=== PATIENT | male | born 1950 | race Hispanic/Latino ===

== ENCOUNTER → 2020-04-09 | Outpatient (CLI) | payer OTHER ==
[~2020-04-09] MED LIST: CHOL500050 PO; DILT120T PO; GLIP10TA9 PO; GLUC-145 PO; HYDR12.54 PO; IBUP-2077 PO; INSLAN SQ; LOSA1TAB37 PO; METF-446 PO; NIAC500C3 PO; OMEP40CA13 PO; ROSU20TA23 PO; SAW450CA7 PO; TRAM50TA4 PO
== END | disposition home or self-care (01) ==
LOC: RAH 10:55
PROVIDERS: ATTEND Orthopaedic Surgery
DX: M23.92 Unspecified internal derangement of left knee (principal)
CPT/HCPCS: 73721

== ENCOUNTER → 2020-05-22 | Outpatient (CLI) | payer OTHER | END | disposition home or self-care (01) | LOC: SHCH 14:23 | PROVIDERS: ATTEND Internal Medicine Cardiovascular Disease | DX: R60.9 Edema, unspecified (principal) | CPT/HCPCS: 93925; 93970 ==

== ENCOUNTER 2020-07-12 07:26 | Day surgery (SDC) | payer OTHER ==
[2020-07-10 09:28] LABS: BASOPHILS % (AUTO) 0.7 % (0.0-5.0); EOSINOPHILS % (AUTO) 3.2 % (0.0-8.0); HEMATOCRIT 42.7 % (42-54); LYMPHOCYTES % (AUTO) 45.6 % (21.0-51.0); MEAN CORPUSCULAR HGB CONC 35.4 g/dL (32.0-36.0); MEAN CORPUSCULAR VOLUME 93.2 fL (79-99); MONOCYTES % (AUTO) 7.8 % (3.0-13.0); NEUTROPHILS % (AUTO) 42.4 % (40.0-77.0); PLATELET COUNT (AUTO) 226 K/uL (130-400); RED BLOOD CELL COUNT(AUTO) 4.58 MIL/uL (4.50-6.20); RED CELL DISTRIBUTION WIDTH 12.5 % (11.0-15.5); WHITE BLOOD COUNT (AUTO) 10.4 K/uL (4.8-10.8)
[2020-07-10 09:39] LABS: POTASSIUM 3.9 mmol/L (3.5-5.1)
[2020-07-10 09:42] LABS: APPEARANCE,URINE Clear (CLEAR); BILIRUBIN,URINE Negative (NEGATIVE); COLOR,URINE Yellow (YELLOW); GLUCOSE, URINE (UA) 500 mg/dL (NEGATIVE); KETONES,URINE Negative (NEGATIVE); LEUKOCYTE ESTERASE ,URINE Negative (NEGATIVE); NITRATE,URINE Negative (NEGATIVE); OCCULT BLOOD,URINE Negative (NEGATIVE); PROTEIN,URINE Negative (NEGATIVE); UROBILINOGEN,URINE 0.2 mg/dL (0.2-1.0)
[2020-07-10 09:53] LABS: INR 0.88 (0.85-1.15); PARTIAL THROMBOPLASTIN TIME 23.8 SEC (26.3-35.5); PROTHROMBIN TIME 9.6 SEC (9.6-11.6)
[2020-07-10 10:04] LABS: BACTERIA,URINE Rare /HPF (None Seen); RBC,URINE 0-1 /HPF (0-1); SQUAMOUS EPITHELIAL CELL,UR Rare /HPF (0-2); WBC,URINE 0-1 /HPF (0-1)
[2020-07-11 16:22] VITALS: BP 124/62
[2020-07-12] VITALS (9 sets, daily range): BP systolic 130–150; BP diastolic 60–69
[~2020-07-12] VITALS: Ht 172.7 cm; Wt 99.1 kg
[~2020-07-12 07:26] MED LIST changes: +AMIL5TAB8 PO; -CHOL500050 PO; -DILT120T PO; -GLUC-145 PO; -HYDR12.54 PO; -IBUP-2077 PO; +ICOS1CAP PO; -INSLAN SQ; +INSU100I15 SQ; +INSU3INS3 SQ; -LOSA1TAB37 PO; +LOSA50TA64 PO; -METF-446 PO; -NIAC500C3 PO; +NIAC500T22 PO; -OMEP40CA13 PO; -ROSU20TA23 PO; -SAW450CA7 PO; +SITA100T12 PO; +SODIUM CHLORIDE 0.9% 500ML 500 ML IV SCH; +TAMS-1 PO; -TRAM50TA4 PO; +VITA100014 PO; +VITAMIN B12 PO; +VITAMIN D3 PO; +VITAMIN E PO
[2020-07-12] MEDS ORDERED: SODIUM CHLORIDE 0.9% 1000ML 1,000 ML IV ONE (07:34)
[2020-07-12] MEDS ORDERED: HEPARIN SODIUM 1000UNIT/ML 10ML VIAL ONE (09:28)
[2020-07-12] MEDS ORDERED: LIDOCAINE HCL 2% 20ML ONE (09:28)
[2020-07-12] MEDS ORDERED: SODIUM BICARB 50MEQ 50ML VIAL 50 ML ONE (09:28)
[2020-07-12] MEDS ORDERED: MIDAZOLAM HCL 1 MG/ML 2ML VIAL ONE (09:28)
[2020-07-12] MEDS ORDERED: IODIXANOL 320 MG/ML 100 ML VIAL ONE (09:28)
[2020-07-12] MEDS ORDERED: NITROGLYCERIN 2 MG/VIAL VIAL IV ONE (09:28)
[2020-07-12] MEDS ORDERED: FENTANYL CITRATE PF 50 MCG/1 ML 2ML VIAL ONE (09:28)
--- NOTE | 2020-07-12 09:55 | NUR ---
procedure pt taken to cathlab for scheduled procedure . spouse at bedside.
[2020-07-12] MEDS ORDERED: ASPIRIN 325MG EC TAB 325 MG TABLET.DR PO ONE (12:21)
[2020-07-12] MEDS ORDERED: TICAGRELOR 90 MG TABLET ONE (12:21)
--- NOTE | 2020-07-12 12:50 | NUR ---
POST RECEIVED PT FROM [facility] S/P LEFT ANTERIOR TIBIA ATHERECTOMY/ANGIOPLASTY . VIA RIGHT FEMORAL ARTERY. SEE POST CATH ASSESSMENT. VS STABLE ON ARRIVAL. PLAN OF CARE DISCUSS WITH PATIENT/ SPOUSE. CALL [facility]. PT AWAKE AND ALERT IN BED. DENIED ANY PAIN OR DISCOMFORTS
[2020-07-12] MEDS ORDERED: ONDANSETRON HCL 4 MG/2 ML VIAL ONE (15:34)
--- NOTE | 2020-07-12 15:39 | NUR ---
vomiting medicated with zofran for c/o emesis. will monitor for med effect. report given to nazia mc rn to resume care of patient
[2020-07-12] MEDS ORDERED: ONDANSETRON HCL 4 MG/2 ML VIAL IVP PRN (15:45)
--- NOTE | 2020-07-12 16:53 | NUR ---
patient discharged from facility via wheelchair and assisted into private vehicle driven by spouse
== END 2020-07-12 16:53 | disposition home or self-care (01) ==
LOC: DAH 07:26
PROVIDERS: ATTEND Internal Medicine Cardiovascular Disease
DX: I70.213 Atherosclerosis of native arteries of extremities with intermittent claudication, bilateral legs (principal); I10 Essential (primary) hypertension; E78.2 Mixed hyperlipidemia; I87.2 Venous insufficiency (chronic) (peripheral); R60.9 Edema, unspecified; E11.40 Type 2 diabetes mellitus with diabetic neuropathy, unspecified; Z96.651 Presence of right artificial knee joint; Z88.6 Allergy status to analgesic agent; Z79.82 Long term (current) use of aspirin; Z79.01 Long term (current) use of anticoagulants; Z79.4 Long term (current) use of insulin; Z79.899 Other long term (current) drug therapy
CPT/HCPCS: 36415; 37229; 71045; 75630; 80048; 81001; 82948 ×2; 85025; 85347; 85610; 85730; 93005; A4215; A4216; A4221; A4222; A4223 ×3; A4606; A4663; C1724 ×3; C1725; C1760; C1769 ×7; C1887 ×2; C1893; C1894 ×2; J1644 ×3; J2250; J2405; J3010; J3490 ×3; J7030; Q9967; 99156; 99157

== ENCOUNTER 2020-10-25 11:25 | Inpatient (IN) | payer OTHER ==
[~2020-10-25] VITALS: Ht 177.8 cm; Wt 96.2 kg
[~2020-10-25 11:25] MED LIST changes: -SODIUM CHLORIDE 0.9% 500ML 500 ML IV SCH
[2020-10-25] MEDS ORDERED: 0.9%NACL 1000ML 1,000 ML IV ONE ×2 (11:42→12:48)
[2020-10-25] MEDS ORDERED: ACETAMINOPHEN 500 MG TABLET ONE (11:44)
[2020-10-25 12:04] LABS: BASOPHILS % (AUTO) 0.4 % (0.0-5.0); HEMATOCRIT 38.4 % (42-54); LYMPHOCYTES % (AUTO) 3.9 % (21.0-51.0); MEAN CORPUSCULAR HEMOGLOBIN 31.9 pg (27.0-33.0); MEAN CORPUSCULAR HGB CONC 35.2 g/dL (32.0-36.0); MEAN CORPUSCULAR VOLUME 90.8 fL (79-99); MONOCYTES % (AUTO) 10.3 % (3.0-13.0); NEUTROPHILS % (AUTO) 81.4 % (40.0-77.0); PLATELET COUNT (AUTO) 265 K/uL (130-400); RED BLOOD CELL COUNT(AUTO) 4.23 MIL/uL (4.50-6.20); RED CELL DISTRIBUTION WIDTH 12.9 % (11.0-15.5)
[2020-10-25] MEDS ORDERED: LEVOFLOXACIN 500 MG/D5W 100 ML 100 ML ONE (12:04)
[2020-10-25 12:11] LABS: CARBON DIOXIDE 26 mmol/L (21-32); CHLORIDE 92 mmol/L (101-111); CREATININE 1.4 mg/dL (0.5-1.5); GLOMERULAR FILTR. RATE CALC 53 mL/min (>60); GLUCOSE,RANDOM 272 mg/dL (70-105); POTASSIUM 3.7 mmol/L (3.5-5.1); SODIUM SERUM 131 mmol/L (136-145); UREA NITROGEN, BLOOD 18 mg/dL (7-18)
[2020-10-25 12:23] LABS: ALANINE AMINOTRANSFERASE 42 U/L (12-78); ASPARTATE AMINOTRANSFERASE 25 U/L (10-37); BILIRUBIN,TOTAL 0.6 mg/dL (0.2-1.0); CREATINE KINASE, TOTAL 130 U/L (21-232); INR 1.05 (0.85-1.15); MYOGLOBIN 171 ng/mL (10-92); PROTHROMBIN TIME 11.4 SEC (9.6-11.6); TOTAL PROTEIN, SERUM 7.8 g/dL (6.0-8.3); TROPONIN I < 0.04 ng/mL (0.00-0.06)
[2020-10-25 12:25] LABS: PARTIAL THROMBOPLASTIN TIME 26.8 SEC (26.3-35.5)
[2020-10-25 12:38] LABS: APPEARANCE,URINE CLEAR (CLEAR); BILIRUBIN,URINE NEGATIVE (NEGATIVE); COLOR,URINE YELLOW (YELLOW); GLUCOSE, URINE (UA) 100 mg/dL (NEGATIVE); KETONES,URINE 5 mg/dL (NEGATIVE); LEUKOCYTE ESTERASE ,URINE SMALL (NEGATIVE); NITRATE,URINE POSITIVE (NEGATIVE); OCCULT BLOOD,URINE SMALL (NEGATIVE); PROTEIN,URINE 100 mg/dL (NEGATIVE)
[2020-10-25 12:42] LABS: WHITE BLOOD COUNT (AUTO) 31.6 K/uL (4.8-10.8)
[2020-10-25 13:07] LABS: BACTERIA,URINE Few /HPF (None Seen)
[2020-10-25 13:42] LABS: BAND NEUTROPHILS % (MANUAL) 10 % (0-2); EOSINOPHILS % (MANUAL) 1 % (1-6); LYMPHOCYTES % (MANUAL) 6 % (22-44); MONOCYTES % (MANUAL) 10 % (2-9); SEGMENTED NEUTROPHILS % 73 % (40-70)
[2020-10-25 13:43] LABS: MAN.DIFF COMMENT-IMPRESSION MANUAL DIFFERENTIAL; PLATELET MORPHOLOGY COMMENT ADEQUATE
[2020-10-25] MEDS ORDERED: ONDANSETRON 4MG INJ IVP PRN (16:00)
[2020-10-25] MEDS ORDERED: DOCUSATE SODIUM 100 MG CAP PO PRN (16:00)
[2020-10-25] MEDS ORDERED: ACETAMINOPHEN 650 MG SUPPOSITORY RC PRN (16:00)
[2020-10-25] MEDS ORDERED: ACETAMINOPHEN 325 MG TAB PO PRN (16:00)
[2020-10-25] MEDS ORDERED: LACTATED RINGERS 1000ML 1,000 ML IV ONE (16:00)
[2020-10-25] MEDS ORDERED: ZOSYN 3.375GM +NS 50ML IV SCH (16:00)
[2020-10-25] MEDS: LACTATED RINGERS 1000ML 1,000 ML IV SCH (16:00)
[2020-10-25] MEDS ORDERED: ZOSYN 3.375GM+NS 50ML 50 ML IV ONE (16:24)
[2020-10-25] MEDS ORDERED: LACTATED RINGERS 1000ML 2,000 ML IV ONE (16:24)
[2020-10-25] MEDS: INSULIN HUMULIN R 100 UNIT/ML 3ML SQ SCH ×2 (16:30→21:00)
[2020-10-25 16:47] LABS: CREATINE KINASE, TOTAL 127 U/L (21-232); MYOGLOBIN 157 ng/mL (10-92); TROPONIN I < 0.04 ng/mL (0.00-0.06)
[2020-10-25] MEDS: ZOSYN 3.375GM+NS 50ML 50 ML IV SCH (17:00)
[2020-10-25] MEDS ORDERED: LEVOFLOXACIN 500 MG/D5W 100 ML IV SCH (17:00)
[2020-10-25 21:47] LABS: CREATINE KINASE, TOTAL 163 U/L (21-232); MYOGLOBIN 129 ng/mL (10-92); TROPONIN I < 0.04 ng/mL (0.00-0.06)
[2020-10-25 22:20] VITALS: BP 127/61
[2020-10-26 00:13] VITALS: BP 111/52
[2020-10-26] MEDS: ZOSYN 3.375GM+NS 50ML 50 ML IV SCH ×3 (01:19→17:20)
[2020-10-26] MEDS: LACTATED RINGERS 1000ML 1,000 ML IV SCH ×3 (01:22→16:00)
[2020-10-26 04:12] VITALS: BP 145/64
[2020-10-26] MEDS: INSULIN HUMULIN R 100 UNIT/ML 3ML SQ SCH ×4 (06:46→20:43)
[2020-10-26 07:48] LABS: CARBON DIOXIDE 27 mmol/L (21-32); CHLORIDE 101 mmol/L (101-111); CREATINE KINASE, TOTAL 140 U/L (21-232); GLOMERULAR FILTR. RATE CALC 78 mL/min (>60); GLUCOSE,RANDOM 220 mg/dL (70-105); LACTATE DEHYDROGENASE 133 U/L (81-234); MYOGLOBIN 117 ng/mL (10-92); PHOSPHORUS 2.6 mg/dL (2.5-4.9); POTASSIUM 3.4 mmol/L (3.5-5.1); SODIUM SERUM 136 mmol/L (136-145); TROPONIN I < 0.04 ng/mL (0.00-0.06); UREA NITROGEN, BLOOD 14 mg/dL (7-18)
[2020-10-26 08:18] LABS: BASOPHILS % (AUTO) 0.3 % (0.0-5.0); EOSINOPHILS % (AUTO) 0.3 % (0.0-8.0); HEMATOCRIT 32.5 % (42-54); LYMPHOCYTES % (AUTO) 7.4 % (21.0-51.0); MEAN CORPUSCULAR HEMOGLOBIN 32.1 pg (27.0-33.0); MEAN CORPUSCULAR HGB CONC 34.8 g/dL (32.0-36.0); MEAN CORPUSCULAR VOLUME 92.3 fL (79-99); MONOCYTES % (AUTO) 6.8 % (3.0-13.0); NEUTROPHILS % (AUTO) 83.1 % (40.0-77.0); PLATELET COUNT (AUTO) 247 K/uL (130-400); RED BLOOD CELL COUNT(AUTO) 3.52 MIL/uL (4.50-6.20); RED CELL DISTRIBUTION WIDTH 13.2 % (11.0-15.5)
[2020-10-26 08:23] LABS: WHITE BLOOD COUNT (AUTO) 32.2 K/uL (4.8-10.8)
[2020-10-26 09:51] VITALS: BP 144/67
[2020-10-26] MEDS ORDERED: VANCOMYCIN PROTOCOL PER PHARMACY IV SCH (10:00)
[2020-10-26] MEDS ORDERED: VANCOMYCIN 1G/250ML KIT 250 ML IV SCH (10:00)
[2020-10-26] MEDS: ENOXAPARIN SODIUM 30 MG/0.3 ML SQ SCH (10:18)
[2020-10-26] MEDS: POLYETHYLENE GLYCOL 3350 17 GM POWD.PACK PO SCH (10:19)
[2020-10-26] MEDS: LEVOFLOXACIN 500 MG/D5W 100 ML 100 ML IV SCH ×2 (10:19→13:08)
[2020-10-26] MEDS ORDERED: VANCOMYCIN 1G 1.5 GM in 0.9% NACL 250ML 250 ML IV SCH (11:30)
[2020-10-26 12:00] VITALS: BP 130/52
[2020-10-26 16:39] VITALS: BP 160/77
[2020-10-26] MEDS: MORPHINE 2 MG SYG IVP PRN (17:20)
[2020-10-26] MEDS ORDERED: LIDOCAINE HCL-MPF 1% 2ML VIAL IV PRN (19:45)
[2020-10-26] MEDS ORDERED: POTASSIUM CHLORIDE 20MEQ/100ML 100 ML IV PRN (19:45)
[2020-10-26 20:20] VITALS: BP 141/71
[2020-10-26] MEDS: VANCOMYCIN 1G/250ML KIT 250 ML IV SCH (20:35)
[2020-10-26] MEDS: POTASSIUM CHLORIDE 10% ELIXIR 20 MEQ/15 ML UDCUP PO PRN ×2 (20:39→23:14)
[2020-10-26] MEDS: GUAIFENESIN-DM 200/20 MG 10 ML PO PRN (20:41)
[2020-10-27 00:20] VITALS: BP 111/57
[2020-10-27] MEDS: ZOSYN 3.375GM+NS 50ML 50 ML IV SCH ×3 (00:58→16:45)
[2020-10-27] MEDS: GUAIFENESIN-DM 200/20 MG 10 ML PO PRN (03:33)
[2020-10-27 04:20] VITALS: BP 124/58
[2020-10-27] MEDS: LACTATED RINGERS 1000ML 1,000 ML IV SCH ×3 (05:14→16:45)
[2020-10-27] MEDS: INSULIN HUMULIN R 100 UNIT/ML 3ML SQ SCH ×4 (05:40→20:45)
[2020-10-27 05:53] LABS: HEMATOCRIT 34.4 % (42-54); MEAN CORPUSCULAR HGB CONC 33.7 g/dL (32.0-36.0); RED BLOOD CELL COUNT(AUTO) 3.74 MIL/uL (4.50-6.20); WHITE BLOOD COUNT (AUTO) 25.7 K/uL (4.8-10.8)
[2020-10-27 05:58] LABS: CREATININE 0.9 mg/dL (0.5-1.5); POTASSIUM 3.3 mmol/L (3.5-5.1)
[2020-10-27] MEDS: KETOROLAC 30MG VIAL (30MG/ML) IM SCH (08:45)
[2020-10-27 08:53] VITALS: BP 106/47
[2020-10-27] MEDS: POLYETHYLENE GLYCOL 3350 17 GM POWD.PACK PO SCH (09:00)
[2020-10-27] MEDS: VANCOMYCIN 1G/250ML KIT 250 ML IV SCH ×2 (09:25→21:59)
[2020-10-27] MEDS: KCL 20 MEQ ERTAB PO PRN ×3 (09:32→16:45)
[2020-10-27] MEDS: ENOXAPARIN SODIUM 30 MG/0.3 ML SQ SCH (09:33)
[2020-10-27] MEDS: LEVOFLOXACIN 500 MG/D5W 100 ML 100 ML IV SCH ×2 (10:00→11:58)
[2020-10-27 10:55] VITALS: BP 112/60
[2020-10-27] MEDS: MORPHINE 2 MG SYG IVP PRN (12:35)
[2020-10-27 16:27] VITALS: BP 128/67
[2020-10-27] MEDS: PANTOPRAZOLE 40 MG TAB DR PO SCH (17:00)
[2020-10-27 20:01] VITALS: BP 138/66
[2020-10-27] MEDS: KETOROLAC 15MG/ML VIAL (15MG/ML) IV PRN (20:49)
[2020-10-28 00:01] VITALS: BP 114/68
[2020-10-28] MEDS: ZOSYN 3.375GM+NS 50ML 50 ML IV SCH ×3 (01:01→18:09)
[2020-10-28 03:50] VITALS: BP 157/77
[2020-10-28] MEDS: INSULIN HUMULIN R 100 UNIT/ML 3ML SQ SCH ×4 (05:40→21:26)
[2020-10-28] MEDS: LACTATED RINGERS 1000ML 1,000 ML IV SCH ×4 (06:44→21:22)
[2020-10-28 07:29] VITALS: BP 136/68
[2020-10-28] MEDS ORDERED: COMPOUND IV REFRIGERATED 1 EACH IVSOLN MISC PRN (07:30)
[2020-10-28] MEDS ORDERED: VANCOMYCIN 1G 1.5 GM in 0.9% NACL 250ML 250 ML IV SCH (07:30)
[2020-10-28] MEDS: KETOROLAC 30MG VIAL (30MG/ML) IM SCH (08:37)
[2020-10-28] MEDS: ENOXAPARIN SODIUM 30 MG/0.3 ML SQ SCH (08:42)
[2020-10-28] MEDS: PANTOPRAZOLE 40 MG TAB DR PO SCH ×2 (08:42→15:15)
[2020-10-28] MEDS: POLYETHYLENE GLYCOL 3350 17 GM POWD.PACK PO SCH (08:47)
[2020-10-28] MEDS: LEVOFLOXACIN 500 MG/D5W 100 ML 100 ML IV SCH ×2 (10:00→13:09)
[2020-10-28 11:20] VITALS: BP 152/79
[2020-10-28] MEDS: KETOROLAC 15MG/ML VIAL (15MG/ML) IV PRN (13:23)
[2020-10-28 15:46] VITALS: BP 149/79
[2020-10-28] MEDS: VANCOMYCIN 1G/250ML KIT 250 ML IV SCH ×2 (15:57→21:20)
[2020-10-28 19:52] VITALS: BP 151/79
[2020-10-29] VITALS (7 sets, daily range): BP systolic 126–163; BP diastolic 57–82
[2020-10-29] MEDS: ZOSYN 3.375GM+NS 50ML 50 ML IV SCH ×3 (01:03→16:29)
[2020-10-29] MEDS: GUAIFENESIN-DM 200/20 MG 10 ML PO PRN ×2 (03:39→11:55)
[2020-10-29 05:21] LABS: BASOPHILS % (AUTO) 0.6 % (0.0-5.0); EOSINOPHILS % (AUTO) 1.8 % (0.0-8.0); HEMATOCRIT 34.7 % (42-54); LYMPHOCYTES % (AUTO) 17.1 % (21.0-51.0); MEAN CORPUSCULAR HEMOGLOBIN 31.9 pg (27.0-33.0); MEAN CORPUSCULAR HGB CONC 35.2 g/dL (32.0-36.0); MEAN CORPUSCULAR VOLUME 90.6 fL (79-99); MONOCYTES % (AUTO) 6.3 % (3.0-13.0); NEUTROPHILS % (AUTO) 73.1 % (40.0-77.0); PLATELET COUNT (AUTO) 282 K/uL (130-400); RED BLOOD CELL COUNT(AUTO) 3.83 MIL/uL (4.50-6.20); RED CELL DISTRIBUTION WIDTH 12.7 % (11.0-15.5); WHITE BLOOD COUNT (AUTO) 14.3 K/uL (4.8-10.8)
[2020-10-29 05:36] LABS: CREATININE 1.1 mg/dL (0.5-1.5); POTASSIUM 3.8 mmol/L (3.5-5.1)
[2020-10-29] MEDS: LACTATED RINGERS 1000ML 1,000 ML IV SCH ×2 (05:43→10:29)
[2020-10-29] MEDS: VANCOMYCIN 1G/250ML KIT 250 ML IV SCH (05:43)
[2020-10-29] MEDS: INSULIN HUMULIN R 100 UNIT/ML 3ML SQ SCH ×4 (05:57→20:29)
[2020-10-29] MEDS: KETOROLAC 30MG VIAL (30MG/ML) IM SCH (08:07)
[2020-10-29] MEDS: ENOXAPARIN SODIUM 30 MG/0.3 ML SQ SCH (10:28)
[2020-10-29] MEDS: PANTOPRAZOLE 40 MG TAB DR PO SCH ×2 (10:28)
[2020-10-29] MEDS: POLYETHYLENE GLYCOL 3350 17 GM POWD.PACK PO SCH (10:29)
[2020-10-29] MEDS: LEVOFLOXACIN 500 MG/D5W 100 ML 100 ML IV SCH (10:30)
[2020-10-29] MEDS ORDERED: POTA-10 PO (12:30)
[2020-10-29] MEDS ORDERED: ESOM40CA PO (12:30)
[2020-10-29] MEDS ORDERED: IBUP-2784 PO (12:30)
[2020-10-29] MEDS ORDERED: PRAV40TA3 PO (12:30)
[2020-10-29] MEDS ORDERED: CHLO25TA3 PO (12:30)
[2020-10-29] MEDS ORDERED: INSU100I24 SQ (12:30)
[2020-10-29] MEDS ORDERED: GABA-529 PO (12:30)
[2020-10-29] MEDS ORDERED: COMPOUND IV REFRIGERATED 1 EACH IVSOLN MISC PRN (13:15)
[2020-10-29] MEDS ORDERED: VANCOMYCIN 750MG + NS 250 ML IV SCH ×2 (14:00)
[2020-10-29] MEDS: KETOROLAC 15MG/ML VIAL (15MG/ML) IV PRN (15:53)
[2020-10-29] MEDS ORDERED: ACETAMINOPHEN WITH CODEINE 1 TAB TAB PO PRN (16:30)
[2020-10-29 16:51] LABS: APPEARANCE,URINE Clear (CLEAR); BILIRUBIN,URINE Negative (NEGATIVE); COLOR,URINE Yellow (YELLOW); GLUCOSE, URINE (UA) 500 mg/dL (NEGATIVE); KETONES,URINE Negative (NEGATIVE); LEUKOCYTE ESTERASE ,URINE Negative (NEGATIVE); NITRATE,URINE Negative (NEGATIVE); OCCULT BLOOD,URINE Nonhemolyzed Trace (NEGATIVE); PROTEIN,URINE Negative (NEGATIVE); UROBILINOGEN,URINE 0.2 mg/dL (0.2-1.0)
[2020-10-29 17:12] LABS: BACTERIA,URINE Rare /HPF (None Seen); MUCUS,URINE Few LPF (None Seen); SQUAMOUS EPITHELIAL CELL,UR Few /HPF (0-2); WBC,URINE 0-1 /HPF (0-1)
[2020-10-29] MEDS ORDERED: DOCUSATE SODIUM 100 MG CAP PO SCH (17:45)
[2020-10-30 03:37] VITALS: BP 146/71
[2020-10-30 05:44] LABS: HEMATOCRIT 36.7 % (42-54); MEAN CORPUSCULAR HEMOGLOBIN 30.9 pg (27.0-33.0); MEAN CORPUSCULAR HGB CONC 33.8 g/dL (32.0-36.0); MEAN CORPUSCULAR VOLUME 91.5 fL (79-99); RED BLOOD CELL COUNT(AUTO) 4.01 MIL/uL (4.50-6.20); RED CELL DISTRIBUTION WIDTH 12.7 % (11.0-15.5); WHITE BLOOD COUNT (AUTO) 13.2 K/uL (4.8-10.8)
[2020-10-30 06:05] LABS: CREATININE 1.1 mg/dL (0.5-1.5); POTASSIUM 3.8 mmol/L (3.5-5.1)
[2020-10-30] MEDS: INSULIN HUMULIN R 100 UNIT/ML 3ML SQ SCH ×2 (06:26→11:51)
[2020-10-30 08:22] VITALS: BP 146/70
[2020-10-30] MEDS: POLYETHYLENE GLYCOL 3350 17 GM POWD.PACK PO SCH (08:54)
[2020-10-30] MEDS: PANTOPRAZOLE 40 MG TAB DR PO SCH (08:54)
[2020-10-30] MEDS: LEVOFLOXACIN 500 MG/D5W 100 ML 100 ML IV SCH (08:55)
[2020-10-30] MEDS: ENOXAPARIN SODIUM 30 MG/0.3 ML SQ SCH (08:55)
[2020-10-30 13:49] VITALS: BP 148/70
[2020-10-30] MEDS ORDERED: INSULIN GLARGINE 100 UNITS/ML 10 ML VIAL SQ SCH (21:00)
== END 2020-10-30 12:45 | disposition home or self-care (01) | DRG 872 ==
LOC: EDH 11:25 → EDHIP 15:46 → 3BH 21:11
PROVIDERS: ADMIT Internal Medicine Critical Care Medicine; ATTEND Internal Medicine Critical Care Medicine
DX: A41.9 Sepsis, unspecified organism (principal); N39.0 Urinary tract infection, site not specified; E11.9 Type 2 diabetes mellitus without complications; I10 Essential (primary) hypertension; N40.0 Benign prostatic hyperplasia without lower urinary tract symptoms; E78.5 Hyperlipidemia, unspecified; N45.3 Epididymo-orchitis; B96.20 Unspecified Escherichia coli [E. coli] as the cause of diseases classified elsewhere; R32 Unspecified urinary incontinence; Z20.822 Contact with and (suspected) exposure to COVID-19; Z79.4 Long term (current) use of insulin; Z88.6 Allergy status to analgesic agent; Z88.8 Allergy status to other drugs, medicaments and biological substances
CPT/HCPCS: 36415; 71045; 76870; 80048; 80053; 80202; 81001; 82550; 82948; 83605; 83615; 83735; 83874; 84100; 84145; 84484; 85025; 85027; 85610; 85730; 86900; 86901; 87040; 87088; 87426; 93005; 97039; G0378; J1650; J1815; J1885; J1956; J2405; J2543; J3370; J7030; J7050; J7120; U0003

== ENCOUNTER → 2020-12-31 | Outpatient (CLI) | payer OTHER ==
[~2020-12-31] MED LIST changes: +CHLO25TA3 PO; +ESOM40CA PO; +GABA-529 PO; -ICOS1CAP PO; +INSU100I24 SQ; -INSU3INS3 SQ; -NIAC500T22 PO; +POTA-9 PO; +PRAV40TA3 PO
== END | disposition home or self-care (01) ==
LOC: SHCH 10:19
PROVIDERS: ATTEND Internal Medicine Cardiovascular Disease
DX: I73.9 Peripheral vascular disease, unspecified (principal)
CPT/HCPCS: 93926

== ENCOUNTER → 2023-06-10 | Outpatient (CLI) | payer OTHER ==
[~2023-06-10] MED LIST changes: +ACET-2247 PO; +CYCL10TA16 PO; +POTA-200 PO; -POTA-9 PO
== END | disposition home or self-care (01) ==
LOC: LAB 09:12
PROVIDERS: ATTEND Internal Medicine Cardiovascular Disease
DX: I10 Essential (primary) hypertension (principal); I73.9 Peripheral vascular disease, unspecified; Z79.899 Other long term (current) drug therapy
CPT/HCPCS: 36415; 82306; 83721

== ENCOUNTER → 2023-12-21 | Outpatient (CLI) | payer OTHER | END | disposition home or self-care (01) | LOC: LAB 09:49 | PROVIDERS: ATTEND Internal Medicine Cardiovascular Disease | DX: I73.9 Peripheral vascular disease, unspecified (principal); M79.10 Myalgia, unspecified site; R29.898 Other symptoms and signs involving the musculoskeletal system | CPT/HCPCS: 36415; 82085; 82550; 85651 ==

== ENCOUNTER → 2024-04-26 | Outpatient (CLI) | payer OTHER ==
[2024-04-26 12:13] LABS: CREATININE 1.1 mg/dL (0.5-1.3); MAGNESIUM 1.8 mg/dL (1.80-2.40); POTASSIUM 3.2 mmol/L (3.5-5.1)
== END | disposition home or self-care (01) ==
LOC: LAB 10:17
PROVIDERS: ATTEND Internal Medicine Cardiovascular Disease
DX: I25.10 Atherosclerotic heart disease of native coronary artery without angina pectoris (principal)
CPT/HCPCS: 36415; 80048; 83735

== ENCOUNTER → 2024-10-03 | Outpatient (CLI) | payer OTHER ==
[~2024-10-03] MED LIST changes: +GLIP10TA16 PO; -GLIP10TA9 PO
[2024-10-03 16:31] LABS: CREATININE 1.1 mg/dL (0.5-1.3); MAGNESIUM 1.7 mg/dL (1.80-2.40); POTASSIUM 3.9 mmol/L (3.5-5.1)
== END | disposition home or self-care (01) ==
LOC: LAB 14:58
PROVIDERS: ATTEND Internal Medicine Cardiovascular Disease
DX: I25.10 Atherosclerotic heart disease of native coronary artery without angina pectoris (principal)
CPT/HCPCS: 36415; 80048; 83735